=== PATIENT | male | born 1995 | race Caucasian/White ===

== ENCOUNTER 2023-10-05 13:43 | Emergency (ER) | payer OTHER, SELFPAY ==
[2023-10-05 14:30] VITALS: BP 130/80; PULSE 76; RESP 17; TEMP 36.7; O2SAT 99; BMI 36.3
--- NOTE | 2023-10-05 14:35 | ED.HA ---
HPI - Headache General Chief Complaint: Headache Stated Complaint: Migraine Time Seen by Provider: 10/05/23 14:39 Source: patient, RN notes reviewed and old records reviewed Mode of arrival: ambulatory History of Present Illness HPI Narrative: 28-year-old male with past medical history migraines presenting to the ED complaining of migraine headache and left eye twitching x2 weeks. States prior history of migraines, used to take/have a prescription for Fioricet however went to the and was lost to follow-up. Denies headache at present. Denies nausea, vomiting, vision loss, numbness, tingling, weakness, fever or taking AC MD elicited complaint: headache Related Data Previous Rx's Medication Instructions Recorded xszjchuwez-qokltoazhhlrd-[id number] 1 cap PO Q4-6H PRN headache #14 10/05/23 50 mg-300 mg-40 mg capsule caps (Fioricet) Allergies Allergy/AdvReac Type Severity Reaction Status Date / Time No Known Allergies Allergy Verified 10/05/23 14:35 Review of Systems Review of Systems: Constitutional: No Fever, No Chills ENT/Mouth: No Ear Pain, No Nasal Congestion, No sore throat, No Rhinorrhea, No Swallowing Difficulty, +L eye twitching Cardiovascular: No Chest Pain, No SOB Respiratory: No Cough, No Sputum Gastrointestinal: No Nausea, No Vomiting, No Diarrhea, No Constipation, No Abdominal pain Musculoskeletal: No joint pain, No Myalgias, No Joint Swelling Skin: No Skin Lesions, No rash Neuro: No Weakness, No Numbness, No Paresthesias, +MCKINNEY Yes all other systems are reviewed and are negative Constitutional: Constitutional: Reports as per HPI Neurologic: Denies Abnormal speech present [facility] Past Medical History Attestation statement: The following information was validated with the patient. Source: old records reviewed Social History Social History Advance Directives: No Physical Exam Vital Signs: Vital Signs: Last Vital Signs Temp 98.1 F 10/05/23 14:30 Pulse 76 10/05/23 14:30 Resp 17 10/05/23 14:30 BP 130/80 10/05/23 14:30 Pulse Ox 99 10/05/23 14:30 O2 Del Method Room Air 10/05/23 14:30 BMI result Body Mass Index 36.3 Const: General: cooperative, healthy appearing and no acute distress Orientation/consciousness: patient oriented x3 Limitations: no limitations HEENT: Head: Yes normal to inspection and Yes atraumatic Ears: hearing grossly normal bilaterally General nose exam: Normal external nose present Face and sinus: Yes normal facial exam Throat: Yes posterior oropharynx normal, Yes tonsils normal and Yes uvula midline Eyes: Other: No appreciable eye twitching at present General: appearance normal, both eyes and all related structures Eyelids: Yes eyelids normal Pupils: Equal, round and reactive pupils present EOM: EOMs intact bilaterally Neck: Neck: Yes normal visual inspection and Yes no meningeal signs Resp: Effort & Inspection: normal respiratory effort and no respiratory distress Auscultation: clear to auscultation bilaterally Cardio: Rate: regular rate Heart sounds: S1 normal heart sound present and S2 normal heart sound present Skin: Rashes: no rashes Wounds: no wounds Neuro: General: patient oriented x3, gait normal, tone normal, moves all extremities, no meningeal signs, no focal motor deficits and CN's II-XI intact bilaterally Cranial nerves: Yes CN's II-XII intact bilaterally, Yes Equal, round and reactive pupils present and Yes Bilaterally intact EOM present Cognition (Neuro): normal cognition Speech: No Abnormal speech present Gait exam (Neuro): Normal gait present Motor exam (neuro): 5/5 motor strength present throughout and no tremor noted Extrem: General: Yes normal to inspection Medical Decision Making Medical Decision Making MDM Narrative: 28-year-old male with past medical history migraines presenting to the ED complaining of migraine headache and left eye twitching x2 weeks. On exam vital signs stable, NAD, nontoxic appearing, physical exam reassuring/unremarkable. Patient asymptomatic at present. Patient interested in prescription for Fioricet as previously worked for him as well as referral for PCP and Neurology. Low suspicion for ICH, meningitis/encephalitis, sinusitis, electrolyte abnormalities Plan: Reassurance, referrals Please refer to course for remaining clinical decision making, interpretation of labs/imaging results, and discussions with consultants and/or family members. Results discussed with patient including worrisome signs and symptoms and strict return precautions, and when to return to the emergency department. They verbalized understanding and feel safe for discharge at this time. Differential Diagnosis Differential Diagnoses: The differential diagnosis associated with the presentation includes As above External Record Review External record reviewed: Inpatient record, Office record, Outpatient record, Prior outpatient labs, Prior outpatient radiology, Primary care record and Outside ED record Tests considered The following testing was considered but not selected: As above Discharge Plan Discharge Clinical Impression: Migraine Patient Disposition: Home, Self-Care Instructions: Migraine Headache (ED) Additional Instructions: Fioricet is for migraines, take as needed. You need to follow-up with neurology and establish a PCP If symptoms persist or worsen you develop weakness return to the ED Prescriptions: New qpxwmjveav-szlxknsixluvs-hbvm [Fioricet] 50-300-40 mg capsule 1 cap PO Q4-6H PRN (Reason: headache) Qty: 14 0RF Referrals: [facility] [place] Primary CareBrandon [Provider Group] [facility] Primary CareShanae [Provider Group] [facility] [place] Walk In Care [Provider Group] [facility] [place] Neuro[facility] [Provider Group]
== END 2023-10-05 15:09 | disposition home or self-care (01) ==
PROVIDERS: Emergency Provider Emergency Medicine Emergency Medical Services
DX: G43.909 Migraine, unspecified, not intractable, without status migrainosus (principal); R25.3 Fasciculation
CPT/HCPCS: 99282; 99283